=== PATIENT | female | born 1935 | race Caucasian/White ===

== ENCOUNTER → 2017-01-01 | Outpatient (CLI) | payer MEDICARE ==
[~2017-01-01] VITALS: Ht 152.4 cm; Wt 686.0 kg
[~2017-01-01] MED LIST: *morphine SULFATE 8 MG/ML PERIprocedure ONLY ONE; ASCO500C PO; ASPI1TAB69 PO; BOSW5TAB PO; CALC1TAB16 PO; CALC250T PO; CHLORHEXIDINE GLUCONATE 2 % 1 PACK (2 CLOTHS) TOPICAL PRN; DO NOT ADM ANY ANTICOAGULANT DRUGS PRN; FLUO-1 PO; INSULIN HUMAN REGULAR 1,000 UNITS/10 ML VIAL SQ PRN; IOHEXOL 350 MG/ML 100 ML BTL (for RAD DIAG) OTHER ONE; LACTATED RINGER'S 1000 ML IV PRN; LEVO100T5 PO; LISI-591 PO; METO50TA PO; METOPROLOL TARTRATE 25 MG TAB PO PRN; MIDAZOLAM HCL 2 MG/2 ML VIAL ONE; OCUVTAB4 PO; POLY10O EACH EYE; POVIDONE IODINE 5% (ANTISEPSIS KIT) 4 APPLICATIONS EACH NARE PRN; PROPOFOL 200 MG/20 ML AMP IV ONE; SODIUM CHLORID 0.9% 500 ML IV PRN; TOVI8TAB PO
[2017-01-01 08:52] VITALS: BP 137/69; PULSE 60; RESP 18; TEMP 97.9; O2SAT 98
--- NOTE | 2017-01-01 11:39 | RADRPT ---
EXAM DATE/TIME: 01/01/2017 10:48 [place] COMPARISON: No previous studies available for comparison. INDICATIONS : Obstruction. FLUORO TIME: 1.58 minutes IMAGE COUNT: 3 CONTRAST: Instilled by Ordering Physician MEDICAL HISTORY : Hypertension. Diabetes mellitus type II. SURGICAL HISTORY : Appendectomy. ENCOUNTER: Initial ACUITY: 1 day PAIN SCORE: Non-responsive. LOCATION: Right upper quadrant FINDINGS: An ERCP was performed by the ordering physician. The images demonstrate no retained stones are identified. Cholecystectomy clips are identified. CONCLUSION: ERCP as above. Genaro Cai MD on January 01, 2017 at 11:36 Board Certified Radiologist. This report was verified electronically.
[2017-01-01 12:00] VITALS: BP 115/56; PULSE 60; RESP 14; TEMP 97.4; O2SAT 95
--- NOTE | 2017-01-01 13:40 | EKG ---
Date Performed: 01/01/2017 Time Performed: 08:22:18 PTAGE: 81 years EKG: ELECTRONIC ATRIAL PACEMAKER ABNORMAL RHYTHM ECG Compared to prior tracing no significant ch nick PREVIOUS TRACING : 12/28/2015 18.35 DOCTOR: Miguel Ángel Aden Interpretating Date/Time 01/01/2017 13:38:32
--- NOTE | 2017-01-02 06:52 | MR ---
cc: CARLI GUERRA DATE 01/01/2017 DATE OF 1935 PROCEDURE Upper endoscopy with stent removal, ERCP with sweeping the duct with balloon. 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 She had an ERCP by Dr. Marinelli with brushing. The brushing was negative. He placed a stent. She needs stent removal and repeat cholangiogram. PROCEDURE After informing the patient of procedure and complication, consent was signed. The patient was placed on her left lateral decubitus, adequate sedation was achieved. With anesthesia after intubation, the scope was placed in the mouth, advanced under video guidance to the second portion of the duodenum. The ampulla was identified with stent coming out. This was removed by a snare. After that, the scope was placed in the mouth, advanced under video guidance. The ampulla was identified again. Cholangiogram was performed. The patient had mild dilation of the common bile duct, questionable filling defect, sweeping the duct with balloon revealed no stones. That was most likely air bubble. At the end of the case occluded cholangiogram was negative for any filling defect with a nice drainage of the common bile duct through the ampulla. I did not see any stenosis at this time, so the procedure was terminated at this time. FINDINGS 1. EGD limited exam normal. Stent was removed. 2. ERCP with balloon sweep as above without any filling defect or stones or signs of mass. RECOMMENDATIONS 1. Follow up liver function tests in two weeks. 2. Return to clinic in three weeks. 3. The patient needs to be on ice chips for 24 hours then advance diet as tolerated. 4. She needs to call if there is any abdominal pain, fever, nausea or vomiting. MD BETH Ortega/SUZI /10:58 AM /6:46 AM
== END ==
LOC: HSDC 08:01
PROVIDERS: ATTEND Hospitalist
DX: Z45.89 Encounter for adjustment and management of other implanted devices (principal); R94.31 Abnormal electrocardiogram [ECG] [EKG]; I10 Essential (primary) hypertension
CPT/HCPCS: 00740; 43275; 74330; 93005; C1769; J2250; J2270; J3010; J7120; Q9967

== ENCOUNTER → 2018-01-20 | Outpatient (CLI) | payer MEDICARE ==
[~2018-01-20] MED LIST changes: -*morphine SULFATE 8 MG/ML PERIprocedure ONLY ONE; -ASCO500C PO; -ASPI1TAB69 PO; -CALC250T PO; -CHLORHEXIDINE GLUCONATE 2 % 1 PACK (2 CLOTHS) TOPICAL PRN; -DO NOT ADM ANY ANTICOAGULANT DRUGS PRN; -FLUO-1 PO; -INSULIN HUMAN REGULAR 1,000 UNITS/10 ML VIAL SQ PRN; -IOHEXOL 350 MG/ML 100 ML BTL (for RAD DIAG) OTHER ONE; -LACTATED RINGER'S 1000 ML IV PRN; -LEVO100T5 PO; +LEVO88TA2 PO; -LISI-591 PO; -METOPROLOL TARTRATE 25 MG TAB PO PRN; -MIDAZOLAM HCL 2 MG/2 ML VIAL ONE; -POLY10O EACH EYE; -POVIDONE IODINE 5% (ANTISEPSIS KIT) 4 APPLICATIONS EACH NARE PRN; -PROPOFOL 200 MG/20 ML AMP IV ONE; +RED1CAP4 PO; -SODIUM CHLORID 0.9% 500 ML IV PRN
--- NOTE | 2018-01-20 10:56 | RADRPT ---
EXAM DATE: 01/20/2018 10:24 AM EDT AGE/SEX: 82 years / Female INDICATIONS: Abdominal pain. CLINICAL DATA: This is the patient's initial encounter. Patient reports that signs and symptoms have been present for 3 weeks and indicates a pain score of 3/10. MEDICAL/SURGICAL HISTORY: . Heart disease. Cholecystectomy. Pace maker. COMPARISON: No prior [facility] exams available for comparison. MEASUREMENTS: Liver:__ 13.9 cm. Common Bile Duct:___ 9mm. Right Kidney:___8.7 x 4.0 x 3.5 cm . Left Kidney:___9.2 x 4.0 x 4.6 cm . Spleen:___7.1 . Aorta: The proximal portion measures 2.5 cm maximal. FINDINGS: Liver: Normal echotexture without focal lesion or ductal dilatation. Portal Vein: Hepatofugal flow seen in portal vein. Common Duct: Gallbladder: Surgically Absent. Pancreas: The visualized portions are within normal limits Right Kidney: No mass. A 1 cm anechoic focus with posterior acoustical enhancement seen involving t he upper pole. Proximal hydroureter partially seen. The mid and distal ureter are obscured by bowel g as. No significant hydronephrosis. Left Kidney: No mass or hydronephrosis. Ascites: None Pleural Effusion: None Spleen: No focal lesion. Aorta: Non aneurysmal. IVC: Within normal limits The urinary bladder is totally decompressed and not well seen. CONCLUSION: 1. Suspected hydroureter on the right. No appreciable hydronephrosis. Consideration could be made to CT scan of the abdomen and pelvis to evaluate for any signs of distal ureteral obstruction on the ri t. 2. Prior cholecystectomy. Electronically signed by: Andrea Kelly MD 01/20/2018 10:55 AM EDT
== END ==
LOC: HRAD 08:50
PROVIDERS: ATTEND Family Medicine
DX: R10.9 Unspecified abdominal pain (principal)
CPT/HCPCS: 76700

== ENCOUNTER → 2018-01-25 | Outpatient (CLI) | payer MEDICARE ==
--- NOTE | 2018-01-25 15:37 | RADRPT ---
EXAM DATE: 01/25/2018 3:32 PM EDT AGE/SEX: 82 years / Female INDICATIONS: Bilateral pelvic pain. CLINICAL DATA: This is the patient's initial encounter. Patient reports that signs and symptoms have been present for 2 weeks and indicates a pain score of 8/10. MEDICAL/SURGICAL HISTORY: Hypertension. Low cholesterol. Thyroid disease. Cholecystectomy. Pa cemaker placement. Stents. COMPARISON: No prior exams available for comparison. MEASUREMENTS: Uterus:__6.1 x 2.7 x 4.3 cm Endometrial Stripe:__4 mm Right Ovary:__ N/A Left Ovary:__ N/A FINDINGS: Uterus: The myometrium has homogeneous echotexture without mass. Right Ovary: The ovary is not visualized. No adnexal mass or fluid collection is seen. . Left Ovary: The ovary is not visualized. No adnexal mass or fluid collection is seen. Other: No free fluid. CONCLUSION: 1. Unremarkable exam for patient of this age. Electronically signed by: Andrea Kelly MD 01/25/2018 3:36 PM EDT
== END ==
LOC: HRAD 13:31
PROVIDERS: ATTEND Family Medicine
DX: R10.2 Pelvic and perineal pain (principal)
CPT/HCPCS: 76856

== ENCOUNTER → 2018-02-03 | Outpatient (CLI) | payer MEDICARE ==
[~2018-02-03] MED LIST changes: +IOHEXOL 350 MG/ML 10 ML VIAL (for RAD DIAG) IVCONTRAST ONE
--- NOTE | 2018-02-03 15:05 | RADRPT ---
EXAM DATE: 02/03/2018 2:14 PM EDT AGE/SEX: 82 years / Female INDICATIONS: Hydroureter. CLINICAL DATA: This is the patient's initial encounter. Patient reports that signs and symptoms have been present for 1 day and indicates a pain score of 0/10. MEDICAL/SURGICAL HISTORY: Cardiovascular disease. Coronary artery stent. Pacemaker. Cholecyst ectomy. RADIATION DOSE: 9.92 CTDI (mGy) COMPARISON: [facility] [place] - COM[place]TE, 01/20/2018. . TECHNIQUE: Pre-contrast images were obtained. Multiple contiguous helical axial images were then ob tained through the abdomen and pelvis following bolus infusion of 97 ml Omnipaque 350 (iohexol) nonio daisy water-soluble contrast and ingestion of dilute oral contrast as a cumulative dose for multiple ex ams. No oral contrast ingested. Using automated exposure control and adjustment of the mA and/or kV a ccording to patient size, radiation dose was kept as low as reasonably achievable to obtain optimal d iagnostic quality images. DICOM format image data is available electronically for review and compari son. FINDINGS: Lower Chest: The visualized lower lungs are clear. Pacing leads are seen in the right side of the hea rt. There is calcification in the LAD. Liver: The liver has a homogeneous density. There is a calcified granuloma at the posterior right lob e. There is mild central intrahepatic biliary duct dilatation. The rotation the common bile duct bettie uring 1.4 cm. This likely reflects a reservoir phenomenon following cholecystectomy. Spleen: Homogeneous density without enlargement. Pancreas: Unremarkable without mass or calcification. Kidneys: Normal in size and shape. No evidence of hydronephrosis. There is a 0.9 cm cyst at the post erior superior lateral right kidney. The extra renal pelvis appears slightly prominent accounting for the finding on ultrasound. The remaining aspect of the ureter however is normal. The left and right ureters have a similar configuration. Adrenal Glands: Unremarkable. Aorta: Atherosclerotic calcifications are seen throughout the arterial system. No aneurysm is seen. Bowel/Mesentery: There are diverticula particularly in the sigmoid region. Significant inflammatory change is not seen. Abdominal Wall: Intact. Retroperitoneum: No evidence of adenopathy in the retrocrural, para-aortic, or deep pelvic regions. Bladder: Contours are smooth. There is a small focus of air within the urinary bladder. Reproductive Organs: No abnormal masses or calcifications seen. Inguinal: The inguinal region is unremarkable without evidence of adenopathy. Bony Structures: There is degenerative change in the lumbar spine. CONCLUSION: 1. Significant hydronephrosis or hydroureter is not seen. There is mild prominence of the extrarenal pelvis bilaterally. The appearance is symmetric. It is thought to be within normal limits. 2. There are duct dilatation likely secondary to a reservoir phenomenon following cholecystectomy. 3. Colonic diverticula especially in the sigmoid region. 4. Small focus of air within the urinary bladder. This should correlate with any recent catheterizat ion. Electronically signed by: Bear Elder MD 02/03/2018 3:04 PM EDT
== END ==
LOC: HRAD 12:05
PROVIDERS: ATTEND Family Medicine
DX: N13.4 Hydroureter (principal)
CPT/HCPCS: 74178; Q9967